=== PATIENT | male | born 1995 | race Caucasian/White ===

== ENCOUNTER 2021-03-19 13:08 | Emergency (ER) | payer BC ==
[~2021-03-19] VITALS: Ht 162.6 cm; Wt 54.0 kg
[2021-03-19 14:34] VITALS: BP 134/84
--- NOTE | 2021-03-19 15:32 | PHYS DOC ---
Past Medical History Additional Past Medical Histor: DEAF Past Surgical History: No Surgical History Smoking Status: Never Smoker Alcohol Use: None General Adult EDM: Chief Complaint: SKIN PROBLEM HPI: HPI: Patient is a 25-year-old male who presents to the emergency department complaining of a rash on his trunk for the past 20 years. Patient reports he first noticed the rash when he was about 5 years old, reports it is itchy and uncomfortable only when he runs or performs other high impact physical activity otherwise it does not bother him. Patient reports he has seen doctors over the years and they tell him there is nothing they can do. Patient denies recent fever or chills, denies changes in his rash, denies using new soaps or products in the home, denies allergies to foods or medications. Patient denies history of syphilis or other sexually transmitted diseases. Denies other physical complaints or physical concerns. Review of Systems: Review of Systems: 14 body systems of review of systems have been reviewed. See HPI for pertinent positives and negative responses, otherwise all other systems are negative, nonpertinent or noncontributory. Constitutional: Negative except as outlined in HPI above. Skin: Negative except as outlined in HPI above. Eyes: Negative except as outlined in HPI above. HENT: Negative except as outlined in HPI above. Respiratory: Negative except as outlined in HPI above. Cardiovascular: Negative except as outlined in HPI above. GI: Negative except as outlined in HPI above. : Negative except as outlined in HPI above. Musculoskeletal: Negative except as outlined in HPI above. Integument: Negative except as outlined in HPI above. Neurologic: Negative except as outlined in HPI above. Endocrine: Negative except as outlined in HPI above. Lymphatic: Negative except as outlined in HPI above. Psychiatric: Negative except as outlined in HPI above. Heart Score: C/O Chest Pain: No Risk Factors: Risk Factors: DM, Current or recent (<one month) smoker, HTN, HLP, family history of CAD, obesity. Risk Scores: Score 0 - 3: 2.5% MACE over next 6 weeks - Discharge Home Score 4 - 6: 20.3% MACE over next 6 weeks - Admit for Clinical Observation Score 7 - 10: 72.7% MACE over next 6 weeks - Early Invasive Strategies Allergies: Allergies: Allergies Coded Allergies Type Severity Reaction Last Updated Verified No Known Drug Allergies 03/19/21 No Physical Exam: PE: Constitutional: Well developed, well nourished, no acute distress, non-toxic appearance. 25-year-old male in no apparent distress. Patient is deaf, communication through smart phone texting. HENT: Normocephalic, atraumatic. Eyes: Conjunctiva normal, no discharge. Neck: Normal range of motion, no stridor. Cardiovascular: No cyanosis appreciated, distal cap refill less than 2 seconds. Lungs & Thorax: Patient is in no respiratory distress, no audible adventitious lung sounds appreciated. Abdomen: Nontender, no abnormalities noted. Skin: Warm, dry, no erythema, appreciable eczematous skin rash in patches to front and back torso and symmetrical Duy tree pattern, heralds patch to right lateral ribs area, erythematous clearly demarcated borders with central clearing, the head and neck is spared, extremities buttocks and genitals are spared. Back: No tenderness, no deformities. Extremities: No tenderness, no cyanosis, no clubbing, ROM intact, no edema. [] Neurologic: Alert and oriented X 3, normal motor function, normal sensory function, no focal deficits noted. Psychologic: Affect normal, judgement normal, mood normal. Current Patient Data: Vital Signs: Vital Signs Date Time Temp Pulse Resp B/P (MAP) Pulse Ox O2 Delivery O2 Flow Rate FiO2 03/19/21 14:34 98.9 59 16 134/84 (101) 95 Room Air 98.9 EKG: EKG: [] Radiology/Procedures: Radiology/Procedures: [] Course & Med Decision Making: Course & Med Decision Making Pertinent Labs and Imaging studies reviewed. (See chart for details) 25-year-old male, vital signs reviewed, presents emergency department concerning rash on body for the past 20 years. Physical presentation is consistent with pityriasis rosea however length of reported process is concerning, will have p atient follow-up with dermatology, will start on topical steroid medication, discussed follow-up with dermatology, medication use, return to ER with patient, patient gave written understanding of and is amenable to ED discharge planning. Discussed with the patient all findings and diagnostic testing as well as the need to follow-up with their primary care provider for further evaluation and treatment or return to the ED if any new or worsening symptoms. Strict return precautions were also discussed at length, the patient gave written understanding and agreement with the discharge planning. The patient was nontoxic in appearance, in no apparent distress, and hemodynamically stable at the time of disposition. Dragon Disclaimer: Dragtita Disclaimer: This electronic medical record was generated, in whole or in part, using a voice recognition dictation system. Departure Departure Impression: Primary Impression: Pityriasis rosea Disposition: HOME / SELF CARE / HOMELESS Condition: STABLE Referrals: NO PCP (PCP) Patient Instructions: Pityriasis Rosea Additional Instructions: You were seen today in the emergency department for a rash, as we discussed I am starting you on a topical ointment to see if it will help. As we discussed please follow-up with a roller die cutting machine operator as dermatology is the specialist for skin disorders. Thank you for visiting our Emergency Department. It was a pleasure taking care of you today in the emergency department and we appreciate you trusting us with your care. If any additional problems come up don't hesitate to return to visit us. Please follow up with your primary care provider so they can plan additional care if needed and know about the problem that you had. If symptoms worsen come back to the Emergency Department. Any concerning symptoms that start such as chest pain, shortness of air, weakness or numbness on one side of the body, running high fevers or any other concerning symptoms return to the ER. [facility] [place] Mai. Isabela Hewitt PA-C [facility] [place] [id number] [place] [address] Dermatology: [phone] Scripts Triamcinolone Acetonide (TRIAMCINOLONE ACETONIDE 0.1% CREAM) 15 Gm Cream..g. 1 JULES TP TID for skin rash, #1 BOTTLE 0 Refills Prov: MANNY RICHARDSON APRN 03/19/21 MANNY RICHARDSON APRN Mar 19, 2021 15:32
[2021-03-19] MEDS ORDERED: TRIA15CR3 TP (15:50)
== END 2021-03-19 16:00 | disposition home or self-care (01) ==
LOC: ER 13:08
DX: L42 Pityriasis rosea (principal)
CPT/HCPCS: 99283